=== PATIENT | male | born 1995 | race Two or more races ===

== ENCOUNTER 2025-02-07 20:49 | Inpatient (IN) | payer OTHER, MEDICAID ==
[~2025-02-07] VITALS: Ht 172.7 cm; Wt 138.3 kg
[2025-02-08 17:22] VITALS: BP 128/99; PULSE 93; RESP 18; TEMP 98.2; O2SAT 100
[2025-02-08 21:12] VITALS: BP 131/89; PULSE 95; RESP 18; TEMP 98; O2SAT 99
[2025-02-08] MEDS: ZOLPIDEM TARTRATE 10 MG TABLET PO PRN (22:50)
[2025-02-09 00:30] VITALS: PULSE 91; RESP 20; O2SAT 95
[2025-02-09] MEDS ORDERED: ONDANSETRON 4 MG TABLET PO PRN (07:30)
[2025-02-09] MEDS ORDERED: DOCUSATE SODIUM 100 MG CAPSULE PO PRN (07:30)
[2025-02-09] MEDS ORDERED: NICOTINE 14 MG/24 HOUR PATCH TD PRN (07:30)
[2025-02-09] MEDS ORDERED: ACETAMINOPHEN 325 MG TABLET PO PRN (07:30)
[2025-02-09] MEDS ORDERED: PETROLATUM,WHITE 28 GM JELLY TP PRN (07:30)
[2025-02-09] MEDS ORDERED: ALBUTEROL SULFATE HFA 90 MCG/PUFF 8 GM INHALER IH PRN (07:30)
[2025-02-09] MEDS ORDERED: LOPERAMIDE HCL 2 MG CAPSULE PO PRN (07:30)
[2025-02-09] MEDS ORDERED: MAG HYDROX/ALUMINUM HYD/SIMETH ES 30 ML SUSPENSION UDCUP PO PRN (07:30)
[2025-02-09] MEDS ORDERED: MAGNESIUM HYDROXIDE SUSPENSION 30 ML UDCUP PO PRN (07:30)
[2025-02-09] MEDS ORDERED: GuaiFENesin/D-METHORPHAN [SUGAR-FREE] 200-20MG/10 ML SYRUP UDCUP PO PRN (07:30)
[2025-02-09 09:12] LABS: CHOL/HDL RATIO 3.4 (4.2-7.3); LDL CHOL (CALC.) 71.0 mg/dL (0-130)
[2025-02-09 09:21] VITALS: BP 143/79; PULSE 96; RESP 18; TEMP 98.1; O2SAT 96
[2025-02-09 11:45] LABS: APPEARANCE,URINE CLEAR (CLEAR); GLUCOSE, URINE (UA) NEGATIVE (NEGATIVE); LEUKOCYTE ESTERASE ,URINE NEGATIVE (NEGATIVE); NITRATE,URINE NEGATIVE (NEGATIVE); OCCULT BLOOD,URINE NEGATIVE (NEGATIVE); PH,URINE DRUG SCREEN 7.0 (5.0-8.0); SPECIFIC GRAVITIY, URINE 1.014 (1.003-1.030)
[2025-02-09 11:51] LABS: ALCOHOL, URINE DRUG SCREEN NEGATIVE (NEGATIVE); AMPHET/METH SCREEN,URINE NEGATIVE (NEGATIVE); BARBITURATE SCREEN, URINE NEGATIVE (NEGATIVE); CANNABINOID SCREEN,URINE NEGATIVE (NEGATIVE); COCAINE SCREEN,URINE NEGATIVE (NEGATIVE); METHADONE SCREEN, URINE NEGATIVE (NEGATIVE)
[2025-02-09] MEDS: NICOTINE 21 MG/24 HOUR PATCH TD SCH (16:42)
[2025-02-09] MEDS: LITHIUM CARBONATE 300 MG TABLET PO SCH (16:42)
[2025-02-09 20:42] VITALS: BP 149/87; PULSE 103; RESP 18; TEMP 97.5; O2SAT 97
[2025-02-09 21:00] VITALS: BP 149/87; PULSE 103; RESP 18; TEMP 97.5; O2SAT 97
[2025-02-09] MEDS: IBUPROFEN 400 MG TABLET PO PRN (21:03)
[2025-02-09 22:03] VITALS: RESP 18
[2025-02-09 23:00] VITALS: PULSE 88; RESP 20; O2SAT 94
[2025-02-10 04:00] VITALS: PULSE 88; RESP 20; O2SAT 94
[2025-02-10 07:49] LABS: CHOL/HDL RATIO 3.4 (4.2-7.3); LDL CHOL (CALC.) 81.0 mg/dL (0-130)
[2025-02-10 08:05] VITALS: BP 147/70; PULSE 107; RESP 18; TEMP 99.1; O2SAT 97
[2025-02-10] MEDS ORDERED: LITH300T PO (15:10)
== END 2025-02-10 16:20 | DRG 885 ==
LOC: 3EI 02-08 16:53
PROVIDERS: ADMIT Psychiatry & Neurology Psychiatry; ATTEND Psychiatry & Neurology Psychiatry
PROC: GZHZZZZ Group Psychotherapy (ICD-10-PCS; principal; 2025-02-09)
PROC: GZ52ZZZ Individual Psychotherapy, Cognitive (ICD-10-PCS; 2025-02-09)
DX: F25.0 Schizoaffective disorder, bipolar type (principal); G47.33 Obstructive sleep apnea (adult) (pediatric); E66.01 Morbid (severe) obesity due to excess calories; F14.21 Cocaine dependence, in remission; Z68.42 Body mass index [BMI] 45.0-49.9, adult
CPT/HCPCS: 80061; 80307; 81003; 83036; 84443; 94660; 94760

== ENCOUNTER 2025-02-07 23:21 | Emergency (ER) | payer OTHER ==
[~2025-02-07] VITALS: Ht 172.7 cm; Wt 136.4 kg
[2025-02-08] VITALS: TEMP 98.3
[2025-02-08 00:16] LABS: PLATELET COUNT (AUTO) 280 K/uL (150-450); RED BLOOD CELL COUNT(AUTO) 5.26 MIL/uL (4.50-5.90); RED CELL DISTRIBUTION WIDTH 13.1 % (11.5-14.5); WHITE BLOOD COUNT (AUTO) 11.6 K/uL (4.5-11.0)
[2025-02-08 00:22] LABS: COVID AG,FIA SOURCE NASAL SWAB
[2025-02-08 00:30] LABS: CALCIUM, TOTAL 9.2 mg/dL (8.8-10.5); CREATININE 0.88 mg/dL (0.60-1.30); GLOMERULAR FILTR. RATE CALC > 60 mL/min (>60); GLUCOSE,RANDOM 93 mg/dL (70-110); SODIUM SERUM 141 mmol/L (136-145); UREA NITROGEN, BLOOD 13 mg/dL (7-18)
[2025-02-08 00:47] LABS: SARS-COV2 (COVID) ANTIGEN,FIA Negative (Negative)
[2025-02-08 01:01] VITALS: PULSE 78; RESP 20; O2SAT 98
[2025-02-08 03:10] LABS: PH,URINE DRUG SCREEN 6.0 (5.0-8.0)
[2025-02-08 03:17] LABS: AMPHET/METH SCREEN,URINE NEGATIVE (NEGATIVE); BARBITURATE SCREEN, URINE NEGATIVE (NEGATIVE); CANNABINOID SCREEN,URINE NEGATIVE (NEGATIVE); COCAINE SCREEN,URINE NEGATIVE (NEGATIVE); METHADONE SCREEN, URINE NEGATIVE (NEGATIVE)
[2025-02-08 03:19] LABS: ALCOHOL, URINE DRUG SCREEN NEGATIVE (NEGATIVE)
[2025-02-08] MEDS: NICOTINE POLACRILEX 4 MG LOZENGE PO ONE ×2 (07:35→14:11)
[2025-02-08] MEDS: LORazepam 2 MG/ML VIAL IM ONE (07:57)
[2025-02-08 07:58] LABS: APPEARANCE,URINE CLEAR (CLEAR); GLUCOSE, URINE (UA) NEGATIVE (NEGATIVE); LEUKOCYTE ESTERASE ,URINE NEGATIVE (NEGATIVE); NITRATE,URINE NEGATIVE (NEGATIVE); OCCULT BLOOD,URINE NEGATIVE (NEGATIVE); SPECIFIC GRAVITIY, URINE 1.025 (1.003-1.030)
[2025-02-08 13:29] VITALS: BP 138/76; PULSE 86; RESP 18; O2SAT 98
== END 2025-02-08 16:32 ==
LOC: EMS 23:21
DX: F25.9 Schizoaffective disorder, unspecified (principal); J44.89 Other specified chronic obstructive pulmonary disease; Z88.1 Allergy status to other antibiotic agents; Z20.822 Contact with and (suspected) exposure to COVID-19
CPT/HCPCS: 99285; 87426; 80048; 85025; 36415; 80307; 81003; 96372; G0480; J2060; 94660; 94760